=== PATIENT | female | born 1990 | race Asian ===

== ENCOUNTER 2020-09-08 07:30 | Inpatient (IN) ==
--- NOTE | 2020-09-07 18:02 | History and Physical Report ---
DATE OF ADMISSION: 09/09/2020 CHIEF COMPLAINT: Plan for section. HISTORY OF PRESENT ILLNESS: Bianka is a 30-year-old G2, P0-0-1-0, at 39 and 3/7 weeks gestational age with an EDC of 09/11/2020 by LMP of 12/06/2019 consistent with first trimester ultrasound. She presents today for return OB. Endorses no complaints. Endorses movement. Denies contractions, leaking of fluid or vaginal bleeding. She was previously noted to be breech and scheduled for a ; however, was found to be vertex and this was subsequently canceled. On exam today, vertex was not palpated on sterile vaginal exam and so bedside ultrasound was performed demonstrating transverse position. She was counseled regarding ECV versus , and she did elect for . ISSUES: Malpresentation. LABORATORY DATA: O positive, antibody screen negative, RPR nonreactive, hepatitis B surface antigen nonreactive, HIV negative, rubella immune, gonorrhea negative, chlamydia negative, GBS negative. COVID negative from 09/01/2020. Placenta is anterior. Genetic screening shows low risk cell-free DNA. PAST OBSTETRIC AND GYNECOLOGIC HISTORY: G1, spontaneous in 2019. G2 is current . Menarche at age 12. Periods are regular every 28-30 days previously. She did have an abnormal Pap in 08/2019 that was ASCUS. No history of STDs. PAST MEDICAL HISTORY: None. PAST SURGICAL HISTORY: None. MEDICATIONS: vitamins. ALLERGIES: None. SOCIAL HISTORY: Denies any tobacco, alcohol or illicit drug use. FAMILY HISTORY: Denies any family history of venous thromboembolism or congenital defects. PHYSICAL EXAMINATION: VITAL SIGNS: Blood pressure 112/70. GENERAL: Alert and oriented, in no acute distress. HEENT: Normocephalic, atraumatic. CARDIAC: Regular rate and rhythm. LUNGS: Clear to auscultation bilaterally. ABDOMEN: Soft, gravid, nontender. Fundal height is 38. heart tones were obtained in the 140s. Bedside ultrasound confirmed transverse position. PELVIS: Sterile vaginal exam was fingertip, long and high. ASSESSMENT AND PLAN: Bianka is a 30-year-old 2, para 0-0-1-0, at 39 and 3/7 weeks' gestational age, presenting for her routine obstetric appointment and was found to be transverse, now planned for section secondary to malpresentation. Risks versus benefits for external cephalic version versus planned section were discussed. The patient and her declined external cephalic version due to the concern for risks associated with the procedure and would prefer to undergo section. I did offer her tomorrow; however, they would like to give it a day to see if the baby turns as it did previously turn. Otherwise, we will plan for delivery on Saturday with ultrasound prior to delivery. This case was discussed with Dr. Lim, who is the on-call doctor of the day and we will plan on obtaining consent that day. I did review risks associated with section including infection, bleeding, injury to adjacent structures including bowel, bladder, ureters, blood vessels and nerves, possible need for blood transfusion and/or life-saving hysterectomy. The patient and her did verbalize understanding and did elect to continue to proceed. They were given labor precautions and verbalized understanding. Plan for operating room on presentation to labor and delivery on Saturday morning. They are to call with any questions or concerns in the interim. RICKY
[2020-09-09] MEDS ORDERED: CITRIC ACID/SODIUM CITRATE 15 ML UDC PO ONE (05:34)
[2020-09-09] MEDS ORDERED: LACTATED RINGER'S 1,000 ML IV SCH ×2 (05:45→08:45)
[2020-09-09 05:57] LABS: Basophils # (auto) 0.01 K/uL (0-0.2); Basophils % (auto) 0.1 %; Eosinophils # (auto) 0.09 K/uL (0-0.5); Eosinophils % (auto) 1.3 %; Hematocrit (blood only) 37.8 % (37-47); Hemoglobin 12.4 g/dL (12.0-16.0); Immature Granulocytes # (auto) 0.02 K/uL (0.00-0.02); Immature Granulocytes % (auto) 0.3 %; Lymphocytes # (auto) 1.86 K/uL (1.2-3.4); Lymphocytes % (auto) 25.9 %; Mean Corpuscular Hemoglobin 27.2 pg (25-34); Mean Corpuscular Volume 82.9 fL (80-100); Mean Platelet Volume 9.7 fL (7.4-10.4); Monocytes # (auto) 0.54 K/uL (0.11-0.59); Monocytes % (auto) 7.5 %; Neutrophils # (auto) 4.65 K/uL (1.4-6.5); Neutrophils % (auto) 64.9 %; Platelet Count 183 K/uL (130-400); RDW Coefficient of Variation 18.1 % (11.5-14.5); RDW Standard Deviation 55.1 fL (36.4-46.3); Red Blood Count 4.56 M/uL (4.2-5.4); White Blood Count 7.17 K/uL (4.8-10.8)
[2020-09-09 05:58] LABS: Mean Corpuscular Hgb Conc 32.8 g/dL (32-36)
[2020-09-09] MEDS ORDERED: ceFAZolin 2000MG 2,000 MG/15 ML SYR IV SCH (06:00)
[2020-09-09] MEDS ORDERED: ONDANSETRON INJ 2 MG/ML 2 ML VIAL IV PRN (07:34)
[2020-09-09] MEDS ORDERED: NALOXONE HCL 1 MG in SODIUM CHLORIDE 0.9% 1000ML 1,000 ML IV PRN (07:34)
[2020-09-09] MEDS ORDERED: NALOXONE HCL 0.08 MG in SYRINGE 1.8 ML IV PRN (07:34)
[2020-09-09] MEDS ORDERED: diphenhydrAMINE 50 MG/ML VIAL IV PRN (07:34)
[2020-09-09] MEDS ORDERED: ePHEDrine sulfate 50 MG/ML AMP IV PRN (07:34)
[2020-09-09] MEDS ORDERED: NALOXONE HCL 0.4 MG/1 ML VIAL/CARP IV PRN (07:34)
[2020-09-09] MEDS ORDERED: LACTATED RINGER'S 500 ML IV PRN (07:34)
[2020-09-09] MEDS ORDERED: MoRPHine SULFATE PF 1 MG/ML 10 ML AMP/VIAL EPI ONE (07:34)
[2020-09-09] MEDS ORDERED: HYDROmorphone INJ 0.5 MG/0.5 ML SYR IV PRN (07:34)
--- NOTE | 2020-09-09 07:34 | Anesthesiology Consultation ---
Date of Service September 09, 2020 Covid 19 negative on 09/01/20. The patient has had no known Covid 19 exposure. Assessment & Plan (1) Encounter for pre-operative examination: Chart Review Chart Review: Acceptable Risk for Surgery Consults Requested none History Surgery Operation Date: 09/08/20 07:30 Proposed Procedures p Section in LD - Sherron Sharma MD Operation Date: 09/09/20 07:30 Proposed Procedures p Section - Yarelis Lim DO Height/Weight Height: 5 ft Weight: 66.224 kg Allergies Allergy/AdvReac Type Severity Reaction Status Date / Time No Known Allergies Allergy Verified 09/08/20 10:24 Medications Home Medications Medication Instructions Recorded Confirmed Last Taken prenat.vits,jesika,[id number] 1 tab PO DAILY 08/26/19 09/08/20 Unknown ferrous sulfate 325 mg PO DAILY 09/08/20 09/08/20 Unknown NPO Date Last Intake of Fluids: 09/08/20 Time Last Intake of Fluids: 23:00 Date Last Intake of Solids: 09/08/20 Time Last Intake of Solids: 23:00 Past Medical History Medical History Atypical squamous cells of undetermined significance (ASCUS) on Papanicolaou smear of cervix Spontaneous 2019 Varicella vaccine Past Family History Family History Father Hypertension Grandmother (Paternal) Hypertension Diabetes Sister Seizure Past Surgical History Surgical History History of tooth extraction Social History Smoking Status: Never smoker Do You Dip or Chew Tobacco: No Hx Alcohol Use: No Hx Substance Use: No substance use type: does not use Physical Exam Vital Signs Last Vital Signs Temp 37.1 C 09/09/20 05:43 Pulse 103 H 09/09/20 07:33 Resp 18 09/09/20 07:04 BP 112/78 09/09/20 05:45 Pulse Ox 98 09/09/20 07:33 Testing Laboratory Results 09/09/20 05:46 Blood Type O Positive 09/09/20 05:46 Antibody Screen NEGATIVE 09/09/20 05:46
--- NOTE | 2020-09-09 07:34 | History & Physical Bridge Note ---
Date of Service September 09, 2020 History & Physical Bridge Note I have examined the patient, reviewed the History & Physical and in the interval since the performance of the History & Physical I have noted the following changes of clinical significance: no changes noted Repeat US: transverse, head maternal right. Small parts up. Anterior placenta. I reviewed consent with the patient [id number], questions answered. She is agreeable to proceed to OR.
[2020-09-09] MEDS ORDERED: MoRPHine SULFATE PF 1 MG/ML 10 ML AMP/VIAL ONE (07:38)
[2020-09-09] MEDS ORDERED: fentaNYL citrate 100 MCG/2 ML VIAL ONE (07:39)
[2020-09-09] MEDS ORDERED: OXYTOCIN 10 UNITS/ML VIAL ONE (07:43)
[2020-09-09] MEDS ORDERED: NO NARCOTICS OR SEDATIVES SCH (07:45)
[2020-09-09] MEDS ORDERED: SODIUM CHLORIDE 0.9% 1000ML 1,000 ML IV SCH (07:45)
[2020-09-09] MEDS ORDERED: PHENYLEPHRINE 100MCG/ML 5ML SYR ONE ×2 (07:58→08:28)
[2020-09-09] MEDS ORDERED: MoRPHine SULFATE PF 1 MG/ML 10 ML AMP/VIAL INT SPINAL ONE (08:00)
[2020-09-09] MEDS ORDERED: SENNA 8.6 MG TAB PO PRN (08:44)
[2020-09-09] MEDS ORDERED: BENZOCAINE 20% AER SPR 82.5 GM CAN EXT PRN (08:44)
[2020-09-09] MEDS ORDERED: SUPERCREAM 0.870% 15 GM JAR EXT PRN (08:44)
[2020-09-09] MEDS ORDERED: MAGNESIUM HYDROXIDE SUSP 30 ML UDC PO PRN (08:44)
[2020-09-09] MEDS ORDERED: HYDROCORTISONE ACETATE 25 MG SUPP PR PRN (08:44)
[2020-09-09] MEDS ORDERED: DIPHTHERIA/TETANUS/PERTUSSIS 0.5 ML SYR/VIAL IM ONE (08:44)
[2020-09-09 08:49] LABS: Base Excess Cord Arterial Bld -3.9 mEq/L (-9-1.8); CO2 Cord Arterial Blood 61 mmHg (39.1-73.5); HCO3 Cord Arterial Blood 25 mmol/L (19.7-28.5); PO2 Cord Arterial Blood 21 mmHg (4.1-31.7); pH Cord Arterial Blood 7.23 (7.1-7.38)
--- NOTE | 2020-09-09 08:59 | Operative Report ---
PG Post Operative Report Pre & Post Diagnosis Operation Date: 09/09/20 07:30 Pre-Op Diagnosis: 1. Term intrauterine , Transverse Lie Post-Op Diagnosis: 1. Same I identified the patient and participated in the time-out.: Yes Procedure Operation Date: 09/09/20 07:30 Actual Procedures Primary Lower Uterine Transverse Section for the of a live girl at 0814(Bilateral) - Yarelis Lim DO Removal of left paratubal cyst Surgeon Yarelis Lim DO Personal Care Worker Yissel Sharma MD Estimated Blood Loss 700 Findings Consistent with Post-Op Diagnosis Viable female , Apgars 8/8. Weight pending, please see nursery records. Specimens placenta, left paratubal cyst, cord gas Drains rivera, clear yellow Anesthesia Type Spinal Complications none Disposition Accompanied Patient To Recovery: Yes Disposition: L&D Indications 30yo @ 39 5/7, transverse lie of . Description of Procedure The patient was seen in her labor and delivery room, risks benefits and alternatives to surgery were reviewed. Informed consent obtained. Questions were answered. She was taken to the operating room, spinal anesthesia was administered. She was then prepared and draped in the usual sterile fashion in the supine position with a leftward tilt. Timeout was confirmed. A Pfannenstiel skin incision was made with a scalpel, and carried through to the underlying layer of fascia. Fascia was nicked at midline, and this incision was extended bilaterally. The superior aspect of the fascial incision was grasped with Alexander clamps x2, elevated off the underlying rectus abdominis muscles, and dissected sharply and bluntly. In similar fashion, the inferior aspect of the fascial incision was dissected. The rectus abdominis muscles were , and the peritoneum was entered bluntly digitally. This was extended bilaterally. The bladder flap was taken down carefully using Metzenbaum scissors. Using a new scalpel, a low transverse uterine incision was created. Clear amniotic fluid noted. The infant was delivered from a transverse presentation, head to maternal right. One leg delivered, second leg swept midline and out, followed by abdomen and torso, then bilateral arms swept midline, and then head delivered. The cord was doubly clamped and cut, and the was handed off to the waiting sap administrator. A segment was retained for cord gases. Cord blood was obtained. The placenta was delivered spontaneously intact. The uterus was exteriorized, and cleared of all clots and debris. The hysterotomy incision was reapproximated using 0 Vicryl in a running locked stitch. A second layer of the same suture was used to imbricate the incision. Posterior uterus was evaluated and normal. The uterus was returned to the abdomen, and gutters were cleared of clots and debris. Excellent hemostasis was observed. The fascial incision was reapproximated using 0 Vicryl in a running stitch. The subcutaneous tissue was irrigated, and reapproximated using 2-0 plain gut in a running stitch. The skin was reapproximated using 4-0 Vicryl in a running subcuticular stitch. Steri-Strips and a bandage were applied. The patient tolerated the procedure well, and will be taken to the recovery area in stable and good condition. I attest to the content of the Intraoperative Record and any orders documented therein. Any exceptions are noted below.
[2020-09-09 09:06] LABS: Oxygen Sat Cord Arterial Blood < 60.0 % (<60)
[2020-09-09] MEDS: OXYTOCIN 20 UNITS in LACTATED RINGER'S 1,000 ML IV SCH ×2 (09:56→16:30)
[2020-09-09] MEDS: KETOROLAC 30 MG/ML VIAL IV PRN ×2 (11:06→20:47)
--- NOTE | 2020-09-09 11:17 | Anesthesiology Progress Note ---
Date of Service September 09, 2020 Anesthesia Post Procedure Vital Signs Vital Signs: Temp Pulse Resp BP BP Pulse Ox 09/09/20 11:12 103 H 98 09/09/20 11:07 106 H 97 09/09/20 11:02 97 H 95 09/09/20 11:00 106 H 97 09/09/20 10:57 100 H 96 09/09/20 10:52 133 H 95 09/09/20 10:47 92 H 96 09/09/20 10:42 101 H 98 09/09/20 10:41 104 H 92 09/09/20 10:37 102 H 96 09/09/20 10:35 96 H 108/56 L 09/09/20 10:32 102 H 97 09/09/20 10:30 102 H 108/56 L 97 09/09/20 10:27 100 H 97 09/09/20 10:24 96 H 170/125 H 09/09/20 10:22 100 H 97 09/09/20 10:17 96 H 98 09/09/20 10:12 93 H 98 09/09/20 10:09 96 H 97/52 L 09/09/20 10:07 93 H 98 09/09/20 10:05 93 H 106/60 09/09/20 10:02 100 H 97 09/09/20 09:57 96 H 98 09/09/20 09:56 96 H 97/52 L 98 09/09/20 09:55 96 H 98 09/09/20 09:52 102 H 97 09/09/20 09:47 100 H 99 09/09/20 09:42 99 H 98 09/09/20 09:40 99 H 99/59 L 99 09/09/20 09:37 99 H 99 09/09/20 09:32 101 H 99 09/09/20 09:27 89 98 09/09/20 09:25 90 97/52 L 98 09/09/20 09:22 90 98 09/09/20 09:17 98 H 96 09/09/20 09:15 115 H 101/59 L 94 09/09/20 09:13 115 H 94 09/09/20 09:12 94 H 96 09/09/20 09:07 91 H 98 09/09/20 09:05 93 H 106/60 97 09/09/20 09:02 93 H 97 09/09/20 08:57 91 H 100/52 L 98 09/09/20 08:55 36.4 C L 93 H 18 100/52 L 97 09/09/20 07:33 103 H 98 09/09/20 07:15 36.9 C 09/09/20 07:04 18 09/09/20 05:45 110 H 112/78 09/09/20 05:43 37.1 C 20 Transfer of Care Handoff Completed per policy Notes Mental Status: alert / awake / arousable Patient Amnestic to Procedure: Yes Nausea / Vomiting: adequately controlled Pain: adequately controlled Airway Patency, RR, SpO2: stable & adequate BP & HR: stable & adequate Hydration State: stable & adequate Neuraxial Anesthesia: was administered and sensory block is resolving Anesthetic Complications: no major complications apparent and Pt Satisfied with anesthetic care
[2020-09-09] MEDS: SIMETHICONE 80 MG CHEW PO SCH ×3 (13:47→20:43)
[2020-09-09] MEDS: DOCUSATE SODIUM 100 MG CAP PO SCH (20:43)
[2020-09-10] MEDS ORDERED: ONDANSETRON INJ 2 MG/ML 2 ML VIAL IV PRN (01:34)
[2020-09-10] MEDS ORDERED: diphenhydrAMINE 50 MG/ML VIAL IV PRN (01:34)
[2020-09-10] MEDS ORDERED: PROMETHAZINE HCL 25 MG in SODIUM CHLORIDE 0.9% 50 ML IV PRN (01:34)
[2020-09-10] MEDS ORDERED: KETOROLAC 30 MG/ML VIAL IV PRN (01:34)
[2020-09-10] MEDS ORDERED: DC INTRASPINAL MORPHINE ONE (01:34)
[2020-09-10] MEDS ORDERED: diphenhydrAMINE Capsule 25 MG CAP PO PRN (01:34)
[2020-09-10] MEDS: IBUPROFEN 600 MG TAB PO PRN ×3 (04:34→19:25)
[2020-09-10] MEDS: oxyCODONE/ACETAMINOPHEN 5mg/325mg TAB PO PRN ×3 (04:35→20:22)
--- NOTE | 2020-09-10 06:33 | Obstetrical Progress Note ---
Date of Service <Moses Lowery MD - Last Filed: 09/10/20 07:05> September 10, 2020 Assessment & Plan <Moses Lowery MD - Last Filed: 09/10/20 07:05> (1) : - PNL: Rh pos, RI, GBS neg, COVID neg - Feels well today. Eating well, voiding well, ambulating well - Pain well controlled with ibuprofen 600mg Q4H PRN - Routine postoperative care -- OOB, ambulation, diet progression as tolerated - After discharge will have 6 week follow-up with Dr. Lim (2) Breech presentation: Day #:: 1 Subjective <Moses Lowery MD - Last Filed: 09/10/20 07:05> Bianka is a 30 y/o female who is POD #1 following elective delivery at 39 3/7 weeks for breech presentation. She reports feeling well overall this morning. Light abdominal cramping and 2/10 pain well managed on analgesics. Voiding well. Tolerating meals overnight without difficulty. Patient has been able to ambulate some. Is passing gas. no bowel movement yet. Has persistent lochia with some improvement this morning. Currently . Review of Systems Denies fever or chills. Denies shortness of breath or cough. Denies chest pain. Denies breast pain. Denies dysuria. Denies leg pain or leg swelling. Denies headache or changes in vision. Physical Exam <Moses Lowery MD - Last Filed: 09/10/20 07:05> General: Alert, oriented. No acute distress. Cardiac: Regular rate and rhythm. No murmurs. Respiratory: Clear to auscultation bilaterally a/p, no wheezes/rales/rhonchi. No increased work of breathing. Symmetrical chest rise. No respiratory distress. Abdomen: Soft, nontender, nondistended. Bowel sounds present. Uterus: Uterine fundus firm, palpable 1 cm below umbilicus. Surgical scar clean and healing well. Lower Extremities: No lower extremity edema or swelling. No deep calf pain. Ho man's negative bilaterally. Results & Data ([facility]) <Moses Lowery MD - Last Filed: 09/10/20 07:05> Vital Signs (Past 12 Hours) Vital Signs Temp Pulse Resp BP Pulse Ox 09/10/20 03:15 37.4 C 102 H 18 103/67 96 09/10/20 01:35 18 97 09/10/20 00:15 18 98 09/09/20 23:20 37.0 C 98 H 16 102/67 97 09/09/20 21:40 16 94 09/09/20 20:40 16 93 09/09/20 19:40 16 98 09/09/20 19:15 36.8 C 100 H 16 97/54 L 96 09/09/20 18:40 16 95 <Yarelis Lim DO - Last Filed: 09/10/20 07:51> Co-Signing Physician Notes Resident Physician Supervision Note: I was present with Dr. Walter during the history and exam. I discussed the case with the resident and agree with the findings and plan as documented in the note. Any exceptions or clarifications are listed here: POD#1 doing well. Rec ambulation, PO hydration today. Documented By: Yarelis Lim DO Resident Activity Tracking <Moses Lowery MD - Last Filed: 09/10/20 07:05> Resident Involvement: Resident Care Provided Care Provided: OB Delivery
[2020-09-10 06:39] LABS: Basophils # (auto) 0.01 K/uL (0-0.2); Basophils % (auto) 0.1 %; Eosinophils # (auto) 0.07 K/uL (0-0.5); Eosinophils % (auto) 0.6 %; Hematocrit (blood only) 30.7 % (37-47); Hemoglobin 9.7 g/dL (12.0-16.0); Immature Granulocytes # (auto) 0.03 K/uL (0.00-0.02); Immature Granulocytes % (auto) 0.3 %; Lymphocytes # (auto) 1.36 K/uL (1.2-3.4); Lymphocytes % (auto) 11.9 %; Mean Corpuscular Hemoglobin 26.6 pg (25-34); Mean Corpuscular Hgb Conc 31.6 g/dL (32-36); Mean Corpuscular Volume 84.1 fL (80-100); Mean Platelet Volume 9.5 fL (7.4-10.4); Monocytes # (auto) 0.78 K/uL (0.11-0.59); Monocytes % (auto) 6.8 %; Neutrophils # (auto) 9.14 K/uL (1.4-6.5); Neutrophils % (auto) 80.3 %; Platelet Count 154 K/uL (130-400); RDW Coefficient of Variation 18.5 % (11.5-14.5); RDW Standard Deviation 57.6 fL (36.4-46.3); Red Blood Count 3.65 M/uL (4.2-5.4); White Blood Count 11.39 K/uL (4.8-10.8)
[2020-09-10] MEDS: SIMETHICONE 80 MG CHEW PO SCH ×4 (07:59→20:24)
[2020-09-10] MEDS: DOCUSATE SODIUM 100 MG CAP PO SCH ×2 (07:59→20:24)
[2020-09-10] MEDS: PRENATAL VITAMIN 1 TAB PO SCH (07:59)
[2020-09-10] MEDS: FERROUS SULFATE 325 MG TAB PO SCH (07:59)
--- NOTE | 2020-09-10 12:20 | Anesthesiology Progress Note ---
Date of Service September 10, 2020 Anesthesia Post Procedure Vital Signs Vital Signs: Temp Pulse Pulse Resp BP Pulse Ox 09/10/20 07:30 36.5 C 85 18 120/66 98 09/10/20 03:15 37.4 C 102 H 18 103/67 96 09/10/20 01:35 18 97 09/10/20 00:15 18 98 09/09/20 23:20 37.0 C 98 H 16 102/67 97 09/09/20 21:40 16 94 09/09/20 20:40 16 93 09/09/20 19:40 16 98 09/09/20 19:15 36.8 C 100 H 16 97/54 L 96 09/09/20 18:40 16 95 09/09/20 17:40 18 96 09/09/20 16:40 16 95 09/09/20 15:40 36.9 C 105 H 18 108/67 99 09/09/20 14:57 16 96 09/09/20 14:00 16 96 09/09/20 13:30 102 H 20 101/62 96 09/09/20 13:00 16 96 09/09/20 12:25 36.8 C 96 H 16 115/67 96 Pain Intensity Abdomen: Pain Intensity: 1 Transfer of Care Handoff Completed per policy Notes Mental Status: alert / awake / arousable Patient Amnestic to Procedure: Yes Nausea / Vomiting: adequately controlled Pain: adequately controlled Airway Patency, RR, SpO2: stable & adequate BP & HR: stable & adequate Hydration State: stable & adequate Neuraxial Anesthesia: was administered and sensory block resolved Anesthetic Complications: no major complications apparent and Pt Satisfied with anesthetic care
[2020-09-10] MEDS ORDERED: bisacodyL 5 MG TABEC PO SCH (20:00)
[2020-09-11] MEDS: oxyCODONE/ACETAMINOPHEN 5mg/325mg TAB PO PRN ×5 (00:48→21:59)
[2020-09-11] MEDS: IBUPROFEN 600 MG TAB PO PRN ×5 (00:48→21:59)
[2020-09-11 06:25] LABS: Hematocrit (blood only) 31.1 % (37-47); Hemoglobin 9.8 g/dL (12.0-16.0)
--- NOTE | 2020-09-11 07:31 | Obstetrical Progress Note ---
Date of Service September 11, 2020 Assessment & Plan (1) state: Patient recovering normally, prefers to stay until POD3. Subjective Ambulation: ambulating normally Voiding: no voiding problems Passing Gas:: Yes Diet Tolerance:: regular diet Lochia:: Small Feeding Type:: breast feeding Physical Exam Constitutional WD/WN, vitals as above Eyes PERRL, conjunctivae normal, anicteric sclerae Neck normal visual inspection Respiratory normal respiratory effort and able to speak in complete sentences; no respiratory distress and no labored breathing Cardiovascular Rate/Rhythm: regular rate and regular rhythm Extremities: no edema Chest (Breasts) Chest: normal inspection of chest Gastrointestinal (Abdomen) Inspection/Auscultation: abdomen normal to inspection and + abdominal surgical incision (c/d/i) Soft, postgravid Psychiatric A+Ox3, euthymic affect Genitourinary OB Exam Abdomen: + fundal height Fundus: + firm and + relation to umbilicus (fundus just below umbilicus); not tender Results & Data ([facility]) Vital Signs (Past 12 Hours) Vital Signs Temp Pulse Resp BP Pulse Ox 09/10/20 23:40 98.2 F 88 18 112/73 98
[2020-09-11] MEDS: DOCUSATE SODIUM 100 MG CAP PO SCH ×2 (07:52→21:11)
[2020-09-11] MEDS: PRENATAL VITAMIN 1 TAB PO SCH (07:52)
[2020-09-11] MEDS: SIMETHICONE 80 MG CHEW PO SCH ×4 (07:52→21:11)
[2020-09-11] MEDS: FERROUS SULFATE 325 MG TAB PO SCH (07:52)
[2020-09-11] MEDS ORDERED: bisacodyL 10 MG SUPP PR PRN (08:44)
[2020-09-12] MEDS: IBUPROFEN 600 MG TAB PO PRN ×3 (04:19→13:04)
[2020-09-12] MEDS: oxyCODONE/ACETAMINOPHEN 5mg/325mg TAB PO PRN ×2 (04:20→13:05)
--- NOTE | 2020-09-12 06:15 | Obstetrical Progress Note ---
Date of Service <[place] Janet Saenz DO - Last Filed: 09/12/20 06:18> September 12, 2020 Assessment & Plan <[place] Janet Saenz DO - Last Filed: 09/12/20 06:18> (1) state: - POD #3 - PNL: Rh pos, RI, GBS neg, COVID neg - Feels well today. Eating well, voiding well, ambulating well. - Pain well controlled with ibuprofen 600mg Q4H PRN - Routine care -- OOB, ambulation, diet progression as tolerated - After discharge will have 6 week follow-up with Dr. Lim. - Will plan for d/c home today Subjective <[place] NicolePatti Saenz DO - Last Filed: 09/12/20 06:18> Bianka Sánchez is a 30 y/o female who is POD #3 following delivery due to transverse lie at 39 and 5/7 weeks. She reports feeling well overall this morning. Minimal abdominal cramping and 1-2/10 pain well managed on analgesics. Voiding without difficulty or dysuria. Tolerating meals overnight without difficulty. Patient has been able to ambulate some. She is passing gas but has not yet had a bowel movement. Has persistent lochia with some improvement this morning. Currently and supplementing with formula. Review of Systems Denies fever or chills. Denies shortness of breath or cough. Denies chest pain. Denies breast pain. Denies dysuria. Denies leg pain or leg swelling. Denies headache or changes in vision. Physical Exam <France Saenz DO - Last Filed: 09/12/20 06:18> General: Alert, oriented. No acute distress. Cardiac: Regular rate and rhythm. No murmurs. Respiratory: Clear to auscultation bilaterally a/p, no wheezes/rales/rhonchi. No increased work of breathing. Symmetrical chest rise. No respiratory distress. Abdomen: Soft, nontender, nondistended. Bowel sounds present. Uterus: Uterine fundus firm, palpable at umbilicus. Surgical scar clean, dry, intact, and healing well. Lower Extremities: No lower extremity edema or swelling. No deep calf pain. Jose Antonio's negative bilaterally. Results & Data ([facility]) <France Saenz DO - Last Filed: 09/12/20 06:18> Vital Signs (Past 12 Hours) Vital Signs Temp Pulse Pulse Resp BP Pulse Ox 09/11/20 23:10 36.6 C 90 18 108/71 97 09/11/20 19:30 36.8 C 88 18 112/72 97 <Annie Verde MD - Last Filed: 09/12/20 07:02> Co-Signing Physician Notes I have reviewed the resident's note and examined the patient myself, and agree with the note above.
[2020-09-12] MEDS: PRENATAL VITAMIN 1 TAB PO SCH (09:00)
[2020-09-12] MEDS: FERROUS SULFATE 325 MG TAB PO SCH (09:00)
[2020-09-12] MEDS: DOCUSATE SODIUM 100 MG CAP PO SCH (09:00)
[2020-09-12] MEDS: SIMETHICONE 80 MG CHEW PO SCH ×2 (09:00→13:04)
--- NOTE | 2020-09-16 09:55 | Discharge Summary ---
Date of Service September 16, 2020 Discharge Data Consultations 09/09/20 05:31 Consult Anesthesiology Stat Procedures Performed Operation Date: 09/08/20 07:30 <No data on this case meets the specified criteria> Operation Date: 09/09/20 07:30 Actual Procedures p Section in LD; Primary Lower Uterine Transverse Section for the of a live girl infant at 0814(Bilateral) - Yarelis Lim DO Hospital Course (1) Supervision of normal intrauterine in primigravida: Admitted for recovery following scheduled section. Routine recovery, DC home POD#3 09/12. Please see chart for further details. Coding Level of Care Code D/C Day Management <30 mins Diagnoses Supervision of normal intrauterine in primigravida Z34.00
--- NOTE | 2020-09-22 09:18 | Coding Query ---
CODING QUERY To promote full compliance with coding requirements relating to patient care, provider participation is requested in all cases of knife setter grinder machine uncertainty. Please assist us with the question(s) below: Coding Question(s): The Operative Report documents that procedure for Removal of left paratubal cyst was performed but there is no documentation of the description of the procedure. Please document below, regarding the procedure. ( x) Removal of left paratubal cyst was performed. Please document below, the description of the procedure for accurate documentation. Description of Procedure:_Left paratubal cyst was removed with bovie cautery and passed off for pathology. ( ) Removal of left paratubal cyst was Not performed. ( ) Other: Please Specify Physician's Response(s): Thank you Nelly Hauser Principal Diagnosis: "that condition established after study, to be chiefly responsible for occasioning the admission of the patient to the hospital for care." Co-Existing Principal Diagnosis: "when two or more diagnoses equally meet the criteria for principal diagnosis as determined by the circumstances of admission, diagnostic work up, and/or therapy provided, and the Alphabetic Index, Tabular List, or another coding guideline does not provide sequencing direction, any one of the diagnoses may be sequenced first." "When the physician has documented what appears to be a current diagnosis in the body of the record, but has not included the diagnosis in the final diagnostic statement, the physician should be asked whether the diagnosis should be added." (Source Coding [facility] 2 QTR90. p3-4) RICKY
== END 2020-09-12 14:45 | disposition home or self-care (01) | DRG 785 ==
LOC: EDSTATUS 07:30 → 4S1 09-09 05:31 → 4S2 09-09 11:57